=== PATIENT | male | born 1955 | race Caucasian/White ===

== ENCOUNTER 2018-06-19 13:31 | Emergency (ER) | payer MEDICARE, OTHER ==
[2018-06-19] MEDS: SOD CHLORIDE 0.9% 1,000 ML IV (14:15)
[2018-06-19 14:16] LABS: ADD MAN DIFF? NO
[2018-06-19 14:17] LABS: AADO2 Venous 67.6 mmHg; MODE ROOM AIR; MetHgb Venous 0.1 %; Sample Type Blood venous; Site VENOUS LINE; Venous COHb 0.6 %; Venous Oxygen Sat 41.3 mmHG (55.0-75.0)
[2018-06-19 14:19] LABS: WHITE BLOOD COUNT 6.9 10^3/ul (4.8-10.8)
[2018-06-19 14:19] LABS: BASOPHILS % 0.6 % (0.0-2.0); EOSINOPHILS # 0.2 10^3/ul (0.0-0.5); EOSINOPHILS % 2.6 % (0.0-7.0); HEMATOCRIT 44.1 % (42.0-52.0); LYMPHOCYTES # 2.3 10^3/ul (0.8-2.9); LYMPHOCYTES % 33.3 % (15.0-51.0); MEAN CORPUSCULAR HEMOGLOBIN 30.4 pg (29.0-33.0); MEAN CORPUSCULAR VOLUME 89.3 fl (82.0-101.0); MEAN PLATELET VOLUME 10.2 fl (7.4-10.4); MONOCYTE # 0.5 10^3/ul (0.3-0.9); MONOCYTES % 7.3 % (0.0-11.0); NEUTROPHIL # 3.8 10^3/ul (1.6-7.5); NEUTROPHILS % 55.8 % (39.0-77.0); PLATELET COUNT 204 10^3/UL (140-415); RED BLOOD COUNT 4.94 10^6/ul (4.70-6.10); RED CELL DISTRIBUTION WIDTH 12.9 % (11.5-14.5)
[2018-06-19 14:41] LABS: ANION GAP 10 (5-13); BLOOD UREA NITROGEN 18 mg/dl (7-20); CALCIUM 10.2 mg/dl (8.4-10.2); CARBON DIOXIDE 29 mmol/L (21-31); CHLORIDE 101 mmol/L (97-110); CREATININE 0.86 mg/dl (0.61-1.24); Estimated GFR > 60 mL/min (>60); POTASSIUM 4.8 mmol/L (3.5-5.1); SODIUM 140 mmol/L (135-144)
[2018-06-19 14:43] LABS: GLUCOSE 470 mg/dl (70-220)
[2018-06-19 14:52] LABS: TROPONIN-I < 0.012 ng/ml (0.000-0.120)
[2018-06-19] MEDS: ASPIRIN 325 MG TAB PO (14:55)
[2018-06-19 15:14] LABS: MAGNESIUM 1.5 mg/dl (1.7-2.5)
[2018-06-19 15:14] LABS: PHOSPHORUS 3.9 mg/dl (2.5-4.9)
[2018-06-19] MEDS: MAGNESIUM SULFATE 1 GM/D5W 100 ML IVPB (15:30)
[2018-06-19] MEDS ORDERED: INSULIN LISPRO 100 UNIT/ML VIAL SC (15:30)
[2018-06-19] MEDS ORDERED: ACCU-CHEK XX (17:30)
== END 2018-06-19 15:57 | disposition home or self-care (01) ==
LOC: E/R 13:31
DX: R07.9 Chest pain, unspecified (principal); F41.9 Anxiety disorder, unspecified; E83.42 Hypomagnesemia; E11.65 Type 2 diabetes mellitus with hyperglycemia; Z79.82 Long term (current) use of aspirin; Z79.84 Long term (current) use of oral hypoglycemic drugs
CPT/HCPCS: 36415; 71045; 80048; 82803; 82962; 83735; 84100; 84484; 85025; 93005; 96374; 99285-25